=== PATIENT | female | born 1965 | race Caucasian/White ===

== ENCOUNTER 2018-01-26 15:16 | Day surgery (SDC) | END 2018-01-26 20:55 | disposition home or self-care (01) ==

== ENCOUNTER 2018-02-14 09:46 | Day surgery (SDC) | END 2018-02-14 14:51 | disposition home or self-care (01) ==

== ENCOUNTER → 2018-11-23 | Day surgery (SDC) | payer OTHER ==
[2018-11-23] VITALS (16 sets, daily range): BP systolic 123–143; BP diastolic 74–87; PULSE 80–88; RESP 16–20; Ht 162.6 cm; Wt 51.6 kg
[~2018-11-23] VITALS: Ht 162.6 cm; Wt 51.6 kg
[~2018-11-23] MED LIST: AMLO2.5T78 PO; ATEN-51 PO; BUPIVACAINE 0.5% (SDV) 30 ML INJ ONE; BUPR-75 PO; BUPR300T4 PO; CEFAZOLIN 1 GM INJ ONE; CEFAZOLIN 2 GM/50 ML (PMX) 50 ML IVPB ONE; DEXAMETHASONE 4 MG/ML 5 ML INJ ONE; EPHEDrine 25 MG/5 ML SYG IV PRN; FENTAnyl 50 MCG/ML VIAL IV PRN; FENTAnyl 50 MCG/ML VIAL ONE; HYDR-762 PO; HYDROmorphONE 1 MG/5 ML IV SYRINGE IV PRN; KETOROLAC 30 MG INJ ONE; LABETALOL HCL 20MG INJ IV PRN; LACTATED RINGER'S 1,000 ML IV SCH; METOCLOPRAMIDE 10 MG INJ ONE; MIDAZOLAM 1 MG/ML 2 ML INJ ONE; OMEP40CA6 PO; ONDANSETRON 4 MG INJ IV PRN; ONDANSETRON 4 MG INJ ONE; POLYMYXIN/BACITRACIN 1L IRRIG ONE; PROPOFOL 20 ML ONE; RANI150T5 PO; ROPIVACAINE 0.5 % 30 ML VIAL ONE; SERT-165 PO; SERT100T PO; SIMV5TAB14 PO; SUGAMMADEX SODIUM 200 MG/2 ML VIAL IV ONE; SULI150T PO; symbalta
--- NOTE | 2018-11-23 14:26 | HPN ---
Date/Time of Note Date/Time of Note DATE: 11/23/18 TIME: 14:25 Interval H&P Admission Note Pt. seen H&P reviewed: No system changes JUAN CARLOS ALFONSO November 23, 2018 14:26
--- NOTE | 2018-11-23 16:17 | PREAC ---
Date/Time of Note Date/Time of Note DATE: 11/23/18 TIME: 16:15 Anesthesia Eval and Record Evaluation Time Pre-Procedure Interview DATE: 11/23/18 TIME: 16:15 Age 53 Sex female NPO: 8 hrs Preoperative diagnosis Right Carpal Tunnel Syndrome and OA of the index and middle finger Right Hand Planned procedure Right Carpal tunnel Release and Fusion of the right index and middle finger Past Medical History Past Medical History: Includes Cardio: HTN Musculoskeletal: Osteoarthritis Psych: Depression, Anxiety Surgery & Anesthesia Issues No known issue Meds Anticoagulation: No Beta Chanell within 24 hr: No Reason Beta Chanell not given: Pt. not on B-Chanell Reported Medications Bupropion Hcl* (Wellbutrin XL*) 150 Mg Tab.sr.24h, 450 MG PO DAILY, TAB.SA 11/23/18 Sertraline Hcl* (Zoloft*) 100 Mg Tablet, 200 MG PO DAILY, #60 TAB 11/23/18 Sulindac* (Sulindac*) 150 Mg Tablet, 200 MG PO BID, TAB 01/26/18 Ranitidine Hcl* (Ranitidine Hcl*) 150 Mg Tablet, 150 MG PO Q12, #60 TAB 01/26/18 Omeprazole* (Omeprazole*) 40 Mg Capsule.dr, 40 MG PO DAILY, #30 CAP 01/26/18 Amlodipine Besylate* (Amlodipine Besylate*) 2.5 Mg Tablet, 2.5 MG PO DAILY, #30 TAB 07/14/15 Atenolol* (Atenolol*) 25 Mg Tablet, 50 MG PO DAILY, TAB 07/14/15 Discontinued Reported Medications Simvastatin* (Simvastatin*) 5 Mg Tablet, 20 MG PO QHS, #30 TAB 01/26/18 Sertraline Hcl* (Sertraline Hcl*) 100 Mg Tablet, 200 MG PO DAILY, #60 TAB 01/26/18 Bupropion Hcl* (Bupropion XL*) 300 Mg Tab.sr.24h, 450 MG PO DAILY, TAB.SA 01/26/18 [symbalta] No Conflict Check, 1 07/14/15 Hydrocodone Bit-Acetaminophen* ([place]*) 10-325 Mg Tablet, 1 TAB PO Q6 PRN for PAIN, TAB 07/14/15 Current Medications Lactated Ringer's 1,000 ml @ 25 mls/hr Q24H IV ; Start 11/23/18 at 07:00 Meds reviewed: Yes Allergies Coded Allergies: diphenhydramine (Verified Allergy, Intermediate, SHORTNESS OF BREATH, 11/23/18) codeine (Verified Adverse Reaction, Unknown, NAUSEA AND VOMITTING, 11/23/18) Allergies Reviewed: Yes Labs/Studies Labs Reviewed: Reviewed by anesthesiologist test: N/A Pre-procedure Exam Last vitals Vital Signs Date Temp Pulse Resp B/P (MAP) Pulse Ox O2 O2 Flow FiO2 Time Delivery Rate 11/23/18 97.7 84 20 135/82 98 Room Air 15:22 (99) Airway: Adequate mouth opening, Adequate thyromental dist Mallampati: Mallampati II Teeth: Normal Lung: Normal Heart: Normal ASA Physical Status ASA physical status: 2 Emergency: None Planned Anesthetic General/MAC: LMA Planned Pain Management Parenteral pain med Pre-operative Attestations Prior to commencing anesthesia and surgery, the patient was re-evaluated, there was verification of: *The patient's identity *The results of appropriate recent lab work and preoperative vital signs *The above evaluation not changing prior to induction *Anesthetic plan, risk benefits, alternative and complications discussed with patient/family; questions answered; patient/family understands, accepts and wishes to proceed. ELHAM SÁNCHEZ MD November 23, 2018 16:17
--- NOTE | 2018-11-23 17:24 | OPPN ---
Date/Time of Note Date/Time of Note DATE: 11/23/18 TIME: 17:21 Operative Report Preoperative Diagnosis right carpal tunnel syndrome, index and middle finger DIPJ OA Postoperative Diagnosis right carpal tunnel syndrome, index and middle finger DIPJ OA Operation/Procedure Performed right carpal tunnel release index and middle finger DIPJ fusion Surgeon see signature line respiratory equipment assistant none Anesthesia: general Estimated blood loss: 0 - 10 ml's Transfusion Required none Specimen none Grafts/Implants none Complications none JUAN CARLOS ALFONSO November 23, 2018 17:24
--- NOTE | 2018-11-23 17:34 | PAC ---
Date/Time of Note Date/Time of Note DATE: 11/23/18 TIME: 17:33 Post-Anesthesia Notes Post-Anesthesia Note Last documented vital signs Vital Signs Date Temp Pulse Resp B/P (MAP) Pulse Ox O2 O2 Flow FiO2 Time Delivery Rate 11/23/18 97.7 84 20 135/82 98 Room Air 17:32 (99) Activity: WNL Respiratory function: WNL Cardiovascular function: WNL Mental status: Baseline Pain reasonably controlled: Yes Hydration appropriate: Yes Nausea/Vomiting absent: Yes ELHAM SÁNCHEZ MD November 23, 2018 17:34
[2018-11-23] MEDS: HYDROmorphONE 1 MG/5 ML IV SYRINGE IV PRN ×2 (17:56→18:14)
--- NOTE | 2018-11-23 20:51 | OPR ---
DATE OF OPERATION: 11/23/2018 SURGEON: Juan Carlos Adam MD. ANESTHESIA: General. PREOPERATIVE DIAGNOSIS: 1. Right index finger distal interphalangeal joint osteoarthritis. 2. Right middle finger distal interphalangeal joint osteoarthritis. 3. Right carpal tunnel syndrome. POSTOPERATIVE DIAGNOSES: 1. Right index finger distal interphalangeal joint osteoarthritis. 2. Right middle finger distal interphalangeal joint osteoarthritis. 3. Right carpal tunnel syndrome. PROCEDURE: 1. Right index finger distal interphalangeal joint fusion. 2. Right middle finger distal interphalangeal joint fusion. 3. Right carpal tunnel release, open. OPERATIVE FINDINGS: Severe osteoarthritis, right index and middle finger with compression of median nerve at carpal tunnel. INDICATION FOR PROCEDURE: A 53-year-old female with longstanding right carpal tunnel syndrome as wel l as right index and middle finger DIPJ osteoarthritis. She failed conservative measures, would like to proceed with surgical intervention, understanding the risks and benefits. DESCRIPTION OF PROCEDURE: The patient was seen in the preoperative area and all further questions we re answered. Again, she gave informed consent, understands the risks and benefits. She was taken to OR suite and placed in supine position. She was placed under general anesthesia and Ancef 2 grams I V given. Tourniquet placed in the right upper extremity and right upper extremity was prepped with C hloraPrep stick and draped in usual sterile fashion. Esmarch bandage was used to exsanguinate the ex tremity and tourniquet inflated to 250 mm. Attention was first turned to the carpal tunnel and a 2 c m incision at the base of the palm was utilized with sharp dissection carried down through skin and s ubcutaneous tissue. The palmar aponeurosis was incised along its ulnar border and retractors were de epened. The transverse carpal ligament was divided along its ulnar border approximately 3 mm radial to the hook of the hamate. Retractor was placed proximally and distally, and proximal and distal ext ents of the transverse carpal ligament were divided under direct visualization. Wound was copiously irrigated. Skin closed with 5-0 nylon. Attention was turned to the index finger and H type incision in the dorsal aspect of the DIPJ was utilized with sharp dissection carried down through skin and whipple bcutaneous tissue. A dorsal arthrotomy was made and the osteophytes at the DIPJ were debrided as wel l as the cortical bone and any bony prominences. A rongeur was used to achieve this and a guidewire for the Acutrak Micro screw was then placed across the joint. The drill was used to establish a path for the screw and a 28 mm Acutrak Micro headless compression screw was placed across the index finge r with excellent compression. Attention was turned to the middle finger and an identical procedure w as performed with sharp dissection through skin and subcutaneous tissue. A 15 blade knife for arthro elfego into the DIPJ and osteophytes excised using a rongeur. Cortical bone removed using a rongeur. A guidewire was placed for the Acutrak Micro and drill were used to prepare the screw path. A 30 mm Acutrak Micro screw was placed across the DIPJ with excellent compression. The wounds were copiously irrigated. Pins were removed. X-rays showed appropriate hardware placement and bony alignment. Sk in closed with 5-0 nylon. Xeroform placed in the wound followed by sterile gauze, Webril, and a shor t arm radial gutter splint at the tip of the fingers. Tourniquet deflated after 43 minutes. The pat ient was awakened from anesthesia. She was taken to the postoperative suite in stable condition, jaymie erated the procedure well without complication. SPECIMENS: None. ESTIMATED BLOOD LOSS: 5 mL. COUNTS: Sponge, instrument, needle counts correct. TOURNIQUET TIME: 43 minutes. CONDITION ON DISCHARGE: Stable. The patient was given a refill of nonrefillable 5-day prescription for pain medication for surgery to day. Dictated By: JUAN CARLOS LOTT/INA Conf#: [id number] DID#: [id number]
== END | disposition home or self-care (01) ==
LOC: SDS 13:43
PROVIDERS: ATTEND Orthopaedic Surgery Hand Surgery
DX: M19.041 Primary osteoarthritis, right hand (principal); G56.01 Carpal tunnel syndrome, right upper limb; I10 Essential (primary) hypertension; F41.8 Other specified anxiety disorders
CPT/HCPCS: 26860; 26861; 64721; 73130; J0690; J1100; J1170; J1885; J2250; J2405; J2765; J2795; J3010; Z7610